=== PATIENT | male | born 1970 | race Caucasian/White ===

== ENCOUNTER 2016-07-13 02:27 | Emergency (ER) | payer MEDICARE, MEDICAID ==
[~2016-07-13] VITALS: Ht 190.5 cm; Wt 99.8 kg
[2016-07-13 02:45] VITALS: BP 146/98
[2016-07-13 03:35] LABS: Basophils # (auto) 0 uL; Basophils % (auto) 0.4 % (0.0-2.0); Eosinophils # (auto) 0.3 uL; Hematocrit 47.1 % (41.0-53.0); Hemoglobin 15.9 g/dL (13.5-17.5); Lymphocytes # (auto) 2.5 uL; Lymphocytes % (auto) 27.4 % (10.0-50.0); Mean Corpuscular Hemoglobin 31.1 pg (28.0-32.0); Mean Corpuscular Hgb Conc. 33.7 g/dL (32.0-36.0); Mean Corpuscular Volume 92.1 fL (80.0-100.0); Mean Platelet Volume 7.3 fL (7.4-10.4); Monocytes # (auto) 0.7 uL; Monocytes % (auto) 7.8 % (0.0-12.0); Neutrophils # (auto) 5.6 uL; Neutrophils % (auto) 61.4 % (37.0-80.0); Platelet Count (auto) 333 10^3/uL (140-450); Red Cell Distribution Width 13.6 % (11.6-16.0); White Blood Cell 9.1 10^3/uL (4.4-10.8)
[2016-07-13 03:42] LABS: Urine Bilirubin Negative (Negative); Urine Blood Negative /uL (Negative); Urine Color Yellow (Yellow); Urine Glucose Normal (Normal); Urine Ketone Negative (Negative); Urine Mucus FEW (None Seen); Urine Nitrite Negative (Negative); Urine RBC 4 /hpf (0 - 3); Urine Squamous Epithelial Cell FEW /hpf (<5); Urine Urobilinogen Normal (Negative); Urine pH 5.5 (5.0-8.0)
[2016-07-13 03:56] LABS: Albumin 3.9 g/dL (3.4-5.0); BUN/Creatinine Ratio 17.7; Calcium 9.4 mg/dL (8.5-10.1); Potassium 3.7 mmol/L (3.5-5.1)
[2016-07-13 03:58] LABS: Bilirubin, Total 0.4 mg/dL (0.2-1.0); Total Protein 7.2 g/dL (6.4-8.2)
== END 2016-07-13 06:00 | disposition left against medical advice (07) ==
LOC: ER 02:27
DX: R10.9 Unspecified abdominal pain (principal); Z53.21 Procedure and treatment not carried out due to patient leaving prior to being seen by health care provider
CPT/HCPCS: 36415; 74176; 80053; 81001; 85025

== ENCOUNTER 2016-08-02 07:21 | Emergency (ER) | payer MEDICARE, MEDICAID ==
[~2016-08-02] VITALS: Ht 190.5 cm; Wt 99.8 kg
[2016-08-02] MEDS ORDERED: SODIUM CHLORIDE 0.9% 1,000 ML IV ONE (07:51)
[2016-08-02] MEDS ORDERED: METOCLOPRAMIDE HCL 5MG/ml INJ 2ml VIAL IV ONE (08:00)
[2016-08-02] MEDS ORDERED: KETOROLAC TROMETH 30 MG/ML 1ML VIAL IV ONE (08:00)
[2016-08-02] MEDS ORDERED: TAMSULOSIN HYDROCHLORIDE 0.4 MG CAP PO ONE (08:00)
[2016-08-02 08:07] LABS: Basophils # (auto) 0 uL; Basophils % (auto) 0.2 % (0.0-2.0); Eosinophils # (auto) 0.1 uL; Eosinophils % (auto) 0.6 % (0.0-7.0); Hematocrit 46.3 % (41.0-53.0); Hemoglobin 15.6 g/dL (13.5-17.5); Lymphocytes % (auto) 6.1 % (10.0-50.0); Mean Corpuscular Hgb Conc. 33.8 g/dL (32.0-36.0); Mean Corpuscular Volume 91.8 fL (80.0-100.0); Mean Platelet Volume 7.1 fL (7.4-10.4); Monocytes # (auto) 0.8 uL; Monocytes % (auto) 4.9 % (0.0-12.0); Neutrophils # (auto) 14.5 uL; Neutrophils % (auto) 88.2 % (37.0-80.0); Platelet Count (auto) 306 10^3/uL (140-450); Red Cell Distribution Width 13.5 % (11.6-16.0); White Blood Cell 16.4 10^3/uL (4.4-10.8)
[2016-08-02 08:29] LABS: BUN/Creatinine Ratio 12.5; Calcium 8.6 mg/dL (8.5-10.1); Potassium 3.8 mmol/L (3.5-5.1)
[2016-08-02 08:32] LABS: Bilirubin, Total 0.4 mg/dL (0.2-1.0); INR 0.95 (0.9-1.15); Partial Thromboplastin Time 29.2 sec (22.64-33.71); Prothrombin Time 10.3 sec (9.37-12.3); Total Protein 7.3 g/dL (6.4-8.2)
[2016-08-02 10:56] LABS: Urine Bilirubin Negative (Negative); Urine Color Yellow (Yellow); Urine Glucose Normal (Normal); Urine Ketone Negative (Negative); Urine Nitrite Negative (Negative); Urine RBC 2 /hpf (0 - 3); Urine Urobilinogen Normal (Negative); Urine pH 5.5 (5.0-8.0)
[2016-08-02 10:57] LABS: Urine Blood 1+ /uL (Negative)
[2016-08-02 12:15] VITALS: BP 124/70
== END 2016-08-02 12:21 | disposition home or self-care (01) ==
LOC: ER 07:21
DX: N13.2 Hydronephrosis with renal and ureteral calculous obstruction (principal); Z88.6 Allergy status to analgesic agent; Z87.442 Personal history of urinary calculi
CPT/HCPCS: 36415; 74176; 80053; 81001; 85025; 85610; 85730; 96361; 96374; 96375; 99285; J1885; J2765; J7030

== ENCOUNTER 2021-02-14 02:41 | Inpatient (IN) | payer MEDICAID, MEDICARE ==
[~2021-02-14] VITALS: Ht 190.5 cm; Wt 106.3 kg
[~2021-02-14 02:41] MED LIST: CYAN1TAB14 PO
[2021-02-14] MEDS ORDERED: ACETAMINOPHEN 325 MG TAB PO ONE (03:15)
[2021-02-14 04:06] LABS: Basophils # (auto) 0 10 ^3/uL (0-0.2); Basophils % (auto) 0.6 % (0.0-2.0); Eosinophils # (auto) 0 10 ^3/uL (0-0.8); Eosinophils % (auto) 0.1 % (0.0-7.0); Hematocrit 45.3 % (41.0-53.0); Hemoglobin 15.9 g/dL (13.5-17.5); Lymphocytes # (auto) 0.7 10 ^3/uL (0.4-5.4); Lymphocytes % (auto) 17.6 % (10.0-50.0); Mean Corpuscular Hemoglobin 31.8 pg (28.0-32.0); Mean Corpuscular Hgb Conc. 35.1 g/dL (32.0-36.0); Mean Corpuscular Volume 90.7 fL (80.0-100.0); Monocytes # (auto) 0.2 10 ^3/uL (0-1.3); Monocytes % (auto) 5.5 % (0.0-12.0); Neutrophils # (auto) 3.1 10 ^3/uL (1.6-8.6); Neutrophils % (auto) 76.2 % (37.0-80.0); Nucleated Red Blood Cells % 0.1 %; Red Cell Distribution Width 13.2 % (11.8-14.3); White Blood Cell 4.1 10^3/uL (4.4-10.8)
[2021-02-14 04:27] LABS: Albumin 3.3 g/dL (3.4-5.0); Calcium 7.8 mg/dL (8.5-10.1); Potassium 3.9 mmol/L (3.5-5.1)
[2021-02-14 04:32] LABS: BUN/Creatinine Ratio 14.1; Bilirubin, Total 0.4 mg/dL (0.2-1.0); Total Protein 6.8 g/dL (6.4-8.2)
[2021-02-14 04:50] LABS: Magnesium 1.8 mg/dL (1.6-2.6)
[2021-02-14 05:00] LABS: CRP High Sensitivity 4.44 mg/dL (< 0.3)
[2021-02-14] MEDS ORDERED: DexAMETHasone SOD PHOS 10MG/1ML VIAL INJ IV ONE (05:15)
[2021-02-14] MEDS ORDERED: MORPHINE SULFATE INJECTION 2 MG/ML SYRG IV PRN (06:00)
[2021-02-14] MEDS ORDERED: DOCUSATE SOD 100 MG CAP PO PRN (06:00)
[2021-02-14] MEDS ORDERED: ACETAMINOPHEN 500 MG TAB PO PRN (06:00)
[2021-02-14] MEDS ORDERED: ONDANSETRON HCL 4 MG/2 ML VIAL IV PRN (06:00)
[2021-02-14] MEDS ORDERED: NITROGLYCERIN 0.4 MG SL TAB SL PRN (06:00)
[2021-02-14 08:30] VITALS: BP 104/64
[2021-02-14 09:00] VITALS: BP 104/64
[2021-02-14] MEDS: cefTRIAXone 1GM/50ML D5W 50 ML IV SCH (09:51)
[2021-02-14] MEDS: BUDESONIDE (INHALATION) 180 MCG IH IN SCH ×2 (10:00→22:25)
[2021-02-14] MEDS: AZITHROMYCIN 500MG/ 250ML 250 ML IV SCH (10:16)
[2021-02-14] MEDS: ENOXAPARIN SOD 40 MG/0.4 ML SYRINGE SC SCH ×2 (10:17→21:19)
[2021-02-14] MEDS: FAMOTIDINE (10MG/ML) 2ML VL IV SCH ×2 (10:17→21:19)
[2021-02-14] MEDS: ASCORBIC ACID 1,000 MG TAB PO SCH (10:18)
[2021-02-14] MEDS: ZINC SULFATE 220mg CAP or TAB PO SCH (10:18)
[2021-02-14] MEDS: DexAMETHasone SOD PHOS 10MG/1ML VIAL INJ IV SCH (10:18)
[2021-02-14] MEDS: CHOLECALCIFEROL (VITD3) 2,000 UNIT CAP/TAB PO SCH (10:18)
[2021-02-14] MEDS: MULTIPLE VITAMIN TAB PO SCH (10:18)
[2021-02-14] MEDS ORDERED: REMDESIVIR PER PHARMACY 0 ML IV SCH (12:30)
[2021-02-14 13:00] VITALS: BP 107/73
[2021-02-14] MEDS ORDERED: REMDESIVIR 200 MG in NS 210ml LOADING DOSE ADULT IV ONE (15:00)
[2021-02-14] MEDS: HYDROcodone-ACET 5/325MG TAB PO PRN ×2 (15:49→21:26)
[2021-02-14 17:00] VITALS: BP 107/69
[2021-02-14] MEDS: guaiFENesin-DM 100/10mg/5ml SYR PO PRN (21:19)
[2021-02-14 22:00] VITALS: BP 114/73
[2021-02-15 05:00] VITALS: BP 127/87
[2021-02-15] MEDS: BUDESONIDE (INHALATION) 180 MCG IH IN SCH ×2 (06:13→22:04)
[2021-02-15 07:04] LABS: Basophils # (auto) 0 10 ^3/uL (0-0.2); Basophils % (auto) 0.1 % (0.0-2.0); Eosinophils # (auto) 0 10 ^3/uL (0-0.8); Hematocrit 49.1 % (41.0-53.0); Lymphocytes # (auto) 1.3 10 ^3/uL (0.4-5.4); Lymphocytes % (auto) 10.3 % (10.0-50.0); Mean Corpuscular Hemoglobin 31.5 pg (28.0-32.0); Mean Corpuscular Hgb Conc. 34.5 g/dL (32.0-36.0); Mean Corpuscular Volume 91.3 fL (80.0-100.0); Monocytes # (auto) 0.5 10 ^3/uL (0-1.3); Monocytes % (auto) 3.8 % (0.0-12.0); Neutrophils # (auto) 11.2 10 ^3/uL (1.6-8.6); Neutrophils % (auto) 85.8 % (37.0-80.0); Nucleated Red Blood Cells % 0.1 %; Red Blood Cells 5.38 10^6/uL (4.5-5.90); Red Cell Distribution Width 13.1 % (11.8-14.3); White Blood Cell 13.1 10^3/uL (4.4-10.8)
[2021-02-15 07:17] LABS: INR 0.95 (0.9-1.15); Partial Thromboplastin Time 31.9 sec (23.6-33.0)
[2021-02-15] MEDS: HYDROcodone-ACET 5/325MG TAB PO PRN ×3 (08:28→21:42)
[2021-02-15 09:00] VITALS: BP 144/95
[2021-02-15] MEDS: cefTRIAXone 1GM/50ML D5W 50 ML IV SCH (09:38)
[2021-02-15] MEDS: DexAMETHasone SOD PHOS 10MG/1ML VIAL INJ IV SCH (09:38)
[2021-02-15] MEDS: guaiFENesin-DM 100/10mg/5ml SYR PO PRN ×2 (09:38→21:43)
[2021-02-15] MEDS: FAMOTIDINE (10MG/ML) 2ML VL IV SCH ×2 (09:38→21:42)
[2021-02-15] MEDS: MULTIPLE VITAMIN TAB PO SCH (09:39)
[2021-02-15] MEDS: ENOXAPARIN SOD 40 MG/0.4 ML SYRINGE SC SCH ×2 (09:39→21:42)
[2021-02-15] MEDS: CHOLECALCIFEROL (VITD3) 2,000 UNIT CAP/TAB PO SCH (09:39)
[2021-02-15] MEDS: ASCORBIC ACID 1,000 MG TAB PO SCH (09:39)
[2021-02-15] MEDS: ZINC SULFATE 220mg CAP or TAB PO SCH (09:39)
[2021-02-15] MEDS: AZITHROMYCIN 500MG/ 250ML 250 ML IV SCH (11:00)
[2021-02-15 13:00] VITALS: BP 128/76
[2021-02-15 14:02] LABS: Potassium 4.5 mmol/L (3.5-5.1)
[2021-02-15 14:03] LABS: Albumin 3.1 g/dL (3.4-5.0); BUN/Creatinine Ratio 17.3; Bilirubin, Total 0.4 mg/dL (0.2-1.0); Calcium 8.6 mg/dL (8.5-10.1); Phosphorus 1.7 mg/dL (2.5-4.90)
[2021-02-15 14:05] LABS: Magnesium 2.6 mg/dL (1.6-2.6); Uric Acid 4.5 mg/dL (3.5-7.2)
[2021-02-15] MEDS: REMDESIVIR 100mg 100 MG in SODIUM CHL 0.9% 230 ML IV SCH (15:52)
[2021-02-15 17:00] VITALS: BP 121/78
[2021-02-15 22:00] VITALS: BP 110/76
[2021-02-15] MEDS: ALBUTEROL SULF HFA 90MCG INH 200DOSE IN PRN (22:04)
[2021-02-16 05:00] VITALS: BP 114/65
[2021-02-16 05:49] LABS: Basophils # (auto) 0 10 ^3/uL (0-0.2); Eosinophils # (auto) 0 10 ^3/uL (0-0.8); Hematocrit 44.4 % (41.0-53.0); Hemoglobin 15.5 g/dL (13.5-17.5); Lymphocytes # (auto) 1.1 10 ^3/uL (0.4-5.4); Mean Corpuscular Hemoglobin 31.5 pg (28.0-32.0); Mean Corpuscular Hgb Conc. 34.8 g/dL (32.0-36.0); Mean Corpuscular Volume 90.6 fL (80.0-100.0); Monocytes # (auto) 0.6 10 ^3/uL (0-1.3); Monocytes % (auto) 5.6 % (0.0-12.0); Neutrophils % (auto) 84.4 % (37.0-80.0); Nucleated Red Blood Cells % 0.1 %; Red Cell Distribution Width 13.2 % (11.8-14.3); White Blood Cell 10.6 10^3/uL (4.4-10.8)
[2021-02-16 06:04] LABS: INR 0.99 (0.9-1.15); Partial Thromboplastin Time 33.6 sec (23.6-33.0)
[2021-02-16 06:05] LABS: Potassium 4.2 mmol/L (3.5-5.1)
[2021-02-16 06:12] LABS: Albumin 3.2 g/dL (3.4-5.0); BUN/Creatinine Ratio 17.8; Bilirubin, Total 0.3 mg/dL (0.2-1.0); Calcium 8.2 mg/dL (8.5-10.1); Magnesium 2.7 mg/dL (1.6-2.6); Phosphorus 3.2 mg/dL (2.5-4.90); Total Protein 6.1 g/dL (6.4-8.2)
[2021-02-16] MEDS: ALBUTEROL SULF HFA 90MCG INH 200DOSE IN PRN (06:15)
[2021-02-16] MEDS: BUDESONIDE (INHALATION) 180 MCG IH IN SCH (06:15)
[2021-02-16 09:00] VITALS: BP 111/61
[2021-02-16] MEDS: DexAMETHasone SOD PHOS 10MG/1ML VIAL INJ IV SCH (09:20)
[2021-02-16] MEDS: FAMOTIDINE (10MG/ML) 2ML VL IV SCH (09:20)
[2021-02-16] MEDS: HYDROcodone-ACET 5/325MG TAB PO PRN (09:20)
[2021-02-16] MEDS: cefTRIAXone 1GM/50ML D5W 50 ML IV SCH (09:20)
[2021-02-16] MEDS: ZINC SULFATE 220mg CAP or TAB PO SCH (09:20)
[2021-02-16] MEDS: ENOXAPARIN SOD 40 MG/0.4 ML SYRINGE SC SCH (09:21)
[2021-02-16] MEDS: MULTIPLE VITAMIN TAB PO SCH (09:21)
[2021-02-16] MEDS: ASCORBIC ACID 1,000 MG TAB PO SCH (09:21)
[2021-02-16] MEDS: CHOLECALCIFEROL (VITD3) 2,000 UNIT CAP/TAB PO SCH (09:21)
[2021-02-16] MEDS: AZITHROMYCIN 500MG/ 250ML 250 ML IV SCH (10:00)
[2021-02-16] MEDS: REMDESIVIR 100mg 100 MG in SODIUM CHL 0.9% 230 ML IV SCH (14:27)
[2021-02-16] MEDS ORDERED: AZIT500T66 PO (16:14)
[2021-02-16] MEDS ORDERED: ALBU108A5 IN (16:14)
[2021-02-16] MEDS ORDERED: FURO1TAB33 PO (16:14)
[2021-02-16] MEDS ORDERED: DEXA6TAB PO (16:14)
[2021-02-16] MEDS ORDERED: ACET-1080 PO (16:14)
[2021-02-16] MEDS ORDERED: POTA10TA51 PO (16:14)
[2021-02-16] MEDS ORDERED: ASPI81CH59 PO (16:14)
[2021-02-16] MEDS ORDERED: TIOTCAP IN (16:14)
[2021-02-16] MEDS ORDERED: CHOL20007 PO (16:14)
== END 2021-02-16 16:19 | disposition home or self-care (01) | DRG 177 ==
LOC: ER 02:41 → OVERFLOW 05:47 → EAST 12:48
PROVIDERS: ADMIT Nurse Practitioner Family; ATTEND Nurse Practitioner Family
PROC: XW033E5 Introduction of Remdesivir Anti-infective into Peripheral Vein, Percutaneous Approach, New Technology Group 5 (ICD-10-PCS; principal; 2021-02-14)
DX: U07.1 COVID-19 (principal); J12.82 Pneumonia due to coronavirus disease 2019; J96.01 Acute respiratory failure with hypoxia; E88.09 Other disorders of plasma-protein metabolism, not elsewhere classified; F17.210 Nicotine dependence, cigarettes, uncomplicated; Z80.42 Family history of malignant neoplasm of prostate; Z87.442 Personal history of urinary calculi; Z88.5 Allergy status to narcotic agent
CPT/HCPCS: 36415; 36600; 71045; 80053; 80061; 82306; 82805; 83036; 83605; 83615; 83735; 83880; 84100; 84443; 84484; 84550; 85025; 85379; 85610; 85730; 86141; 87040; 87426; 93005; 94640; 96374; G0378; J0696; J1100; J3490

== ENCOUNTER 2023-02-07 10:58 | Inpatient (IN) | payer OTHER, SELFPAY ==
[~2023-02-07] VITALS: Ht 190.5 cm; Wt 96.5 kg
[~2023-02-07 10:58] MED LIST changes: +ACET-1080 PO; +ALBU108A5 IN; +ASPI81CH59 PO; +AZIT500T66 PO; +CHOL20007 PO; -CYAN1TAB14 PO; +DEXA6TAB PO; +FURO1TAB33 PO; +POTA10TA51 PO; +TIOTCAP IN
[2023-02-07 11:49] LABS: Basophils # (auto) 0 10 ^3/uL (0-0.2); Basophils % (auto) 0.4 % (0.0-2.0); Eosinophils # (auto) 0.1 10 ^3/uL (0-0.8); Eosinophils % (auto) 1.3 % (0.0-7.0); Hematocrit 44.4 % (41.0-53.0); Hemoglobin 14.6 g/dL (13.5-17.5); Lymphocytes # (auto) 1.5 10 ^3/uL (0.4-5.4); Lymphocytes % (auto) 14.7 % (10.0-50.0); Mean Corpuscular Hemoglobin 30.8 pg (28.0-32.0); Mean Corpuscular Hgb Conc. 32.9 g/dL (32.0-36.0); Mean Corpuscular Volume 93.6 fL (80.0-100.0); Monocytes # (auto) 0.6 10 ^3/uL (0-1.3); Monocytes % (auto) 5.3 % (0.0-12.0); Neutrophils # (auto) 8.1 10 ^3/uL (1.6-8.6); Neutrophils % (auto) 78.3 % (37.0-80.0); Red Blood Cells 4.74 10^6/uL (4.5-5.90); White Blood Cell 10.4 10^3/uL (4.4-10.8)
[2023-02-07 12:12] LABS: Alanine Aminotransferase 132 U/L (7-40); Alkaline Phosphatase 100 U/L (46-116); Anion Gap 6 (5-15); BUN/Creatinine Ratio 14.3 (10.0-20.0); Blood Urea Nitrogen 17 mg/dL (9-23); Calcium 9.1 mg/dL (8.7-10.4); Carbon Dioxide 25 mmol/L (20-30); Chloride 109 mmol/L (98-107); Glucose 103 mg/dL (74-106); Magnesium 1.9 mg/dL (1.6-2.6); Potassium 3.9 mmol/L (3.5-5.1); Sodium 140 mmol/L (136-145)
[2023-02-07 12:13] LABS: Albumin 4.3 g/dL (3.2-4.8); Aspartate Aminotransferase 74 U/L (13-40); Total Protein 6.3 g/dL (5.7-8.2)
[2023-02-07] MEDS ORDERED: HEPARIN SODIUM (PORCINE) 5000 UNITS/ML 1ML VIAL IV ONE (12:45)
[2023-02-07] MEDS ORDERED: FUROSEMIDE 40 MG/4 ML VIAL IV ONE (12:45)
[2023-02-07] MEDS ORDERED: HEPARIN DRIP/D5W 100UNITS/ML 250 ML IV SCH (12:45)
[2023-02-07 14:15] LABS: INR 1.02 (0.9-1.15); Partial Thromboplastin Time 28.2 SEC (24.5-34.5); Prothrombin Time 10.7 sec (9.3-11.8)
[2023-02-07 15:48] LABS: Urine Bacteria FEW /hpf (None Seen); Urine Blood Negative /uL (Negative); Urine Clarity Clear (Clear); Urine Color Yellow (Yellow); Urine Mucus FEW (None Seen); Urine Protein, UAD TRACE (Negative); Urine Specific Gravity 1.026 (1.001-1.035); Urine Urobilinogen Normal (Negative); Urine WBC 1 /hpf (0 - 3); Urine pH 5.5 (5.0-8.0)
[2023-02-07 16:30] VITALS: PULSE 95; RESP 28; O2SAT 94
[2023-02-07] MEDS ORDERED: IOHEXOL 350 MG/ML 100ML IJ ONE (17:18)
[2023-02-07 17:36] LABS: Rapid Influenza A Negative (Negative)
[2023-02-07 17:37] LABS: COVID19 ANTIGEN SOFIA FIA NEGATIVE (NEGATIVE); Rapid Influenza B Negative (Negative)
[2023-02-07] MEDS ORDERED: ONDANSETRON HCL 4 MG/2 ML VIAL IV PRN (21:15)
[2023-02-07] MEDS ORDERED: MORPHINE SULFATE INJ 2 MG/ml SYRG IV PRN (21:15)
[2023-02-07] MEDS ORDERED: ACETAMINOPHEN 325 MG TAB PO PRN (21:15)
[2023-02-07] MEDS ORDERED: NITROGLYCERIN 0.4 MG SL TAB SL PRN (21:15)
[2023-02-07 23:48] LABS: INR 1.03 (0.9-1.15); Partial Thromboplastin Time 31.3 SEC (24.5-34.5); Prothrombin Time 10.8 sec (9.3-11.8)
[2023-02-08] MEDS: HEPARIN DRIP/D5W 100UNITS/ML 250 ML IV SCH ×3 (01:07→15:49)
[2023-02-08] MEDS ORDERED: HEPARIN SODIUM (PORCINE) 5000 UNITS/ML 1ML VIAL IV ONE ×2 (01:15→16:00)
[2023-02-08 05:27] LABS: Basophils # (auto) 0.1 10 ^3/uL (0-0.2); Basophils % (auto) 0.7 % (0.0-2.0); Eosinophils # (auto) 0.3 10 ^3/uL (0-0.8); Eosinophils % (auto) 3.1 % (0.0-7.0); Hematocrit 45.3 % (41.0-53.0); Lymphocytes # (auto) 2.7 10 ^3/uL (0.4-5.4); Lymphocytes % (auto) 29.4 % (10.0-50.0); Mean Corpuscular Hemoglobin 30.7 pg (28.0-32.0); Mean Corpuscular Hgb Conc. 33.2 g/dL (32.0-36.0); Mean Corpuscular Volume 92.6 fL (80.0-100.0); Monocytes # (auto) 0.7 10 ^3/uL (0-1.3); Monocytes % (auto) 7.6 % (0.0-12.0); Neutrophils # (auto) 5.4 10 ^3/uL (1.6-8.6); Neutrophils % (auto) 59.2 % (37.0-80.0); Red Blood Cells 4.89 10^6/uL (4.5-5.90); Red Cell Distribution Width 13.5 % (11.8-14.3); White Blood Cell 9.2 10^3/uL (4.4-10.8)
[2023-02-08 05:31] LABS: Alanine Aminotransferase 108 U/L (7-40); Albumin 4.4 g/dL (3.2-4.8); Alkaline Phosphatase 104 U/L (46-116); Anion Gap 8 (5-15); Aspartate Aminotransferase 41 U/L (13-40); BUN/Creatinine Ratio 11.7 (10.0-20.0); Bilirubin, Total 0.8 mg/dL (0.2-1.0); Blood Urea Nitrogen 14 mg/dL (9-23); Calcium 9.7 mg/dL (8.7-10.4); Carbon Dioxide 27 mmol/L (20-30); Chloride 107 mmol/L (98-107); Glucose 97 mg/dL (74-106); Potassium 3.7 mmol/L (3.5-5.1); Sodium 142 mmol/L (136-145); Total Protein 6.7 g/dL (5.7-8.2)
[2023-02-08] MEDS: FUROSEMIDE 20 MG/2 ML VIAL IV SCH ×2 (06:33→17:20)
[2023-02-08 08:16] LABS: INR 1.03 (0.9-1.15); Partial Thromboplastin Time 44.7 SEC (24.5-34.5); Prothrombin Time 10.8 sec (9.3-11.8)
[2023-02-08 08:30] VITALS: PULSE 85; RESP 24; O2SAT 98
[2023-02-08 10:51] VITALS: BP 124/76; PULSE 91; RESP 18; TEMP 97.3; O2SAT 95
[2023-02-08 15:23] LABS: INR 1.01 (0.9-1.15); Prothrombin Time 10.6 sec (9.3-11.8)
[2023-02-08] MEDS ORDERED: HEPARIN DRIP/D5W 100UNITS/ML 250 ML IV SCH (16:00)
[2023-02-08 16:33] VITALS: PULSE 99; RESP 20; O2SAT 96
[2023-02-08 17:00] VITALS: BP 155/101; PULSE 97; RESP 21; TEMP 97.9; O2SAT 95
[2023-02-08] MEDS: ALPRAZolam 0.25 MG TAB PO PRN (19:45)
[2023-02-08 20:00] VITALS: PULSE 92; PULSE 98; RESP 20; O2SAT 96
[2023-02-08] MEDS: METOPROLOL TARTRATE 25 MG TAB PO SCH (21:28)
[2023-02-08 22:00] VITALS: BP_SYST 106; BP_SYST 113; BP_DIAS 71; BP_DIAS 79; PULSE 64; PULSE 92; RESP 18; RESP 19; TEMP 98; O2SAT 95
[2023-02-08 22:38] LABS: Partial Thromboplastin Time 61.7 SEC (24.5-34.5); Prothrombin Time 10.5 sec (9.3-11.8)
[2023-02-09] VITALS (7 sets, daily range): BP systolic 103–129; BP diastolic 59–77; PULSE 71–98; RESP 15–19; TEMP 97.4–98; O2SAT 96–100
[2023-02-09 04:07] LABS: Basophils # (auto) 0.1 10 ^3/uL (0-0.2); Basophils % (auto) 0.7 % (0.0-2.0); Eosinophils # (auto) 0.3 10 ^3/uL (0-0.8); Eosinophils % (auto) 2.3 % (0.0-7.0); Hematocrit 46.7 % (41.0-53.0); Hemoglobin 15.4 g/dL (13.5-17.5); Lymphocytes # (auto) 2.9 10 ^3/uL (0.4-5.4); Lymphocytes % (auto) 25.8 % (10.0-50.0); Mean Corpuscular Hemoglobin 30.8 pg (28.0-32.0); Mean Corpuscular Volume 93.2 fL (80.0-100.0); Monocytes # (auto) 1.2 10 ^3/uL (0-1.3); Monocytes % (auto) 10.6 % (0.0-12.0); Neutrophils # (auto) 6.9 10 ^3/uL (1.6-8.6); Neutrophils % (auto) 60.6 % (37.0-80.0); Red Blood Cells 5.01 10^6/uL (4.5-5.90); Red Cell Distribution Width 13.9 % (11.8-14.3); White Blood Cell 11.4 10^3/uL (4.4-10.8)
[2023-02-09 04:16] LABS: Chloride 106 mmol/L (98-107); Sodium 143 mmol/L (136-145)
[2023-02-09 04:17] LABS: Anion Gap 7 (5-15); Calcium 10.2 mg/dL (8.5-10.1); Carbon Dioxide 30 mmol/L (20-30)
[2023-02-09 04:22] LABS: BUN/Creatinine Ratio 8.4 (10.0-20.0); Blood Urea Nitrogen 11 mg/dL (9-23); Glucose 95 mg/dL (74-106); INR 1.02 (0.9-1.15); Partial Thromboplastin Time 66.6 SEC (24.5-34.5); Prothrombin Time 10.7 sec (9.3-11.8)
[2023-02-09] MEDS: ALPRAZolam 0.25 MG TAB PO PRN (06:11)
[2023-02-09] MEDS: FUROSEMIDE 20 MG/2 ML VIAL IV SCH (06:12)
[2023-02-09] MEDS: FUROSEMIDE INJECTION 100 MG in D5W 5% 100 ML IV SCH (09:00)
[2023-02-09] MEDS: METOPROLOL TARTRATE 25 MG TAB PO SCH ×2 (10:00→21:21)
[2023-02-09] MEDS: LISINOPRIL 5 MG TAB PO SCH (10:00)
[2023-02-09 10:20] LABS: Basophils # (auto) 0.1 10 ^3/uL (0-0.2); Basophils % (auto) 0.8 % (0.0-2.0); Eosinophils # (auto) 0.2 10 ^3/uL (0-0.8); Hematocrit 49.3 % (41.0-53.0); Hemoglobin 15.9 g/dL (13.5-17.5); Lymphocytes # (auto) 2.3 10 ^3/uL (0.4-5.4); Lymphocytes % (auto) 19.1 % (10.0-50.0); Mean Corpuscular Hemoglobin 30.5 pg (28.0-32.0); Mean Corpuscular Hgb Conc. 32.3 g/dL (32.0-36.0); Mean Corpuscular Volume 94.4 fL (80.0-100.0); Monocytes # (auto) 0.8 10 ^3/uL (0-1.3); Monocytes % (auto) 6.7 % (0.0-12.0); Neutrophils # (auto) 8.7 10 ^3/uL (1.6-8.6); Neutrophils % (auto) 71.4 % (37.0-80.0); Nucleated Red Blood Cells % 0.1 %; Red Blood Cells 5.22 10^6/uL (4.5-5.90); Red Cell Distribution Width 13.9 % (11.8-14.3); White Blood Cell 12.2 10^3/uL (4.4-10.8)
[2023-02-09 10:55] LABS: INR 1.04 (0.9-1.15); Prothrombin Time 10.9 sec (9.3-11.8)
[2023-02-09 11:19] LABS: Partial Thromboplastin Time 75.4 SEC (24.5-34.5)
[2023-02-09] MEDS ORDERED: ENOXAPARIN SOD 100 MG/1 ML SYRINGE SC SCH (22:00)
[2023-02-10] VITALS (10 sets, daily range): BP systolic 100–114; BP diastolic 64–79; PULSE 67–90; RESP 15–22; TEMP 97.3–97.7; O2SAT 93–98
[2023-02-10 06:55] LABS: Alanine Aminotransferase 67 U/L (7-40); Albumin 4.3 g/dL (3.2-4.8); Alkaline Phosphatase 91 U/L (46-116); Anion Gap 11 (5-15); Aspartate Aminotransferase 23 U/L (13-40); BUN/Creatinine Ratio 11.5 (10.0-20.0); Bilirubin, Total 0.5 mg/dL (0.2-1.0); Blood Urea Nitrogen 14 mg/dL (9-23); Carbon Dioxide 26 mmol/L (20-30); Chloride 103 mmol/L (98-107); Glucose 96 mg/dL (74-106); Potassium 3.6 mmol/L (3.5-5.1); Sodium 140 mmol/L (136-145); Total Protein 6.7 g/dL (5.7-8.2)
[2023-02-10] MEDS: LISINOPRIL 5 MG TAB PO SCH (10:00)
[2023-02-10] MEDS: NICOTINE 21MG/24 HR TOPICAL PATCH TD SCH (10:00)
[2023-02-10] MEDS: METOPROLOL TARTRATE 25 MG TAB PO SCH ×2 (10:00→21:36)
[2023-02-10] MEDS ORDERED: VERAPAMIL 2.5MG/ML INJ 2ML VIAL IV ONE (11:57)
[2023-02-10] MEDS ORDERED: fentaNYL CITRATE 100 MCG/2 ML VL ONE (11:57)
[2023-02-10] MEDS ORDERED: HEPARIN SODIUM (PORCINE) 5000 UNITS/ML 1ML VIAL ONE (11:57)
[2023-02-10] MEDS ORDERED: ANGIOMAX 250 MG VIAL IV ONE (11:57)
[2023-02-10] MEDS ORDERED: MIDAZOLAM HCL 2MG/2ML 2ml VIAL (1mg/ml) ONE (11:58)
[2023-02-10] MEDS ORDERED: SODIUM CHL 0.9% 0 ML ONE (11:58)
[2023-02-10] MEDS ORDERED: IODIXANOL 320MG/ML 100ML BTL IV ONE (11:58)
[2023-02-10] MEDS ORDERED: LIDOCAINE 2%HCL (LOCAL ANESTH.) INJ 20ML MDV ONE (11:58)
[2023-02-10] MEDS: FUROSEMIDE INJECTION 100 MG in D5W 5% 100 ML IV SCH (14:39)
[2023-02-10] MEDS: ALPRAZolam 0.25 MG TAB PO PRN (21:35)
[2023-02-11 06:21] VITALS: BP 106/71; PULSE 81; RESP 18; TEMP 97.6; O2SAT 96
[2023-02-11 06:29] LABS: Basophils # (auto) 0 10 ^3/uL (0-0.2); Basophils % (auto) 0.4 % (0.0-2.0); Eosinophils # (auto) 0.2 10 ^3/uL (0-0.8); Eosinophils % (auto) 1.7 % (0.0-7.0); Hematocrit 49.5 % (41.0-53.0); Hemoglobin 16.6 g/dL (13.5-17.5); Lymphocytes # (auto) 1.7 10 ^3/uL (0.4-5.4); Lymphocytes % (auto) 16.1 % (10.0-50.0); Mean Corpuscular Hemoglobin 31.1 pg (28.0-32.0); Mean Corpuscular Hgb Conc. 33.6 g/dL (32.0-36.0); Mean Corpuscular Volume 92.6 fL (80.0-100.0); Monocytes # (auto) 0.8 10 ^3/uL (0-1.3); Monocytes % (auto) 7.7 % (0.0-12.0); Neutrophils % (auto) 74.1 % (37.0-80.0); Nucleated Red Blood Cells % 0.1 %; Red Blood Cells 5.34 10^6/uL (4.5-5.90); Red Cell Distribution Width 14.1 % (11.8-14.3); White Blood Cell 10.8 10^3/uL (4.4-10.8)
[2023-02-11 06:31] LABS: Partial Thromboplastin Time 28.4 SEC (24.5-34.5); Prothrombin Time 10.5 sec (9.3-11.8)
[2023-02-11 06:33] LABS: Alanine Aminotransferase 68 U/L (7-40); Albumin 4.7 g/dL (3.2-4.8); Alkaline Phosphatase 95 U/L (46-116); Anion Gap 8 (5-15); Aspartate Aminotransferase 33 U/L (13-40); BUN/Creatinine Ratio 13.1 (10.0-20.0); Bilirubin, Total 0.5 mg/dL (0.2-1.0); Blood Urea Nitrogen 18 mg/dL (9-23); Calcium 9.9 mg/dL (8.7-10.4); Carbon Dioxide 28 mmol/L (20-30); Chloride 102 mmol/L (98-107); Glucose 111 mg/dL (74-106); Potassium 3.9 mmol/L (3.5-5.1); Sodium 138 mmol/L (136-145); Total Protein 7.1 g/dL (5.7-8.2)
[2023-02-11 08:00] VITALS: BP 110/72; PULSE 78; PULSE 88; RESP 16; TEMP 97.8; O2SAT 94
[2023-02-11 08:21] LABS: Amphetamine Screen, Urine Pos (NEGATIVE); Barbiturate Scree,Urine Neg (NEGATIVE); Benzodiazephine Screen, Urine Pos (NEGATIVE); Cocaine Screen, Urine Neg (NEGATIVE)
[2023-02-11 08:22] LABS: Cannabinoid Screen, Urine Neg (NEGATIVE); Opiate Scree,Urine Neg (NEGATIVE); Phencyclidine Screen, Urine Neg (NEGATIVE)
[2023-02-11] MEDS: ALPRAZolam 0.25 MG TAB PO PRN (09:50)
[2023-02-11] MEDS ORDERED: LISINOPRIL 5 MG TAB PO SCH (10:00)
[2023-02-11] MEDS ORDERED: EMPAGLIFLOZIN 10 MG TAB PO SCH (10:00)
[2023-02-11] MEDS: NICOTINE 21MG/24 HR TOPICAL PATCH TD SCH (10:00)
[2023-02-11] MEDS ORDERED: METOPROLOL TARTRATE 25 MG TAB PO SCH (10:00)
[2023-02-11] MEDS ORDERED: ASPI-498 OR (10:28)
[2023-02-11] MEDS ORDERED: POTA8TAB38 PO (10:28)
[2023-02-11] MEDS ORDERED: LISI-275 PO (10:28)
[2023-02-11] MEDS ORDERED: METO25TA5 PO (10:28)
[2023-02-11] MEDS ORDERED: FURO1TAB33 PO (10:28)
[2023-02-11] MEDS ORDERED: ATOR20TA50 PO (10:28)
[2023-02-11 10:49] VITALS: BP 110/72; PULSE 78; TEMP 36.6
[2023-02-11] MEDS ORDERED: FUROSEMIDE 20 MG/2 ML VIAL IV SCH (18:00)
== END 2023-02-11 11:50 | disposition home or self-care (01) | DRG 280 ==
LOC: ER 10:58 → TELE 21:14 → TELE-CENTR 02-08 10:22
PROVIDERS: ADMIT Nurse Practitioner; ATTEND Nurse Practitioner Acute Care
PROC: 4A023N8 Measurement of Cardiac Sampling and Pressure, Bilateral, Percutaneous Approach (ICD-10-PCS; principal; 2023-02-10)
PROC: B211YZZ Fluoroscopy of Multiple Coronary Arteries using Other Contrast (ICD-10-PCS; 2023-02-10)
DX: I21.4 Non-ST elevation (NSTEMI) myocardial infarction (principal); I50.43 Acute on chronic combined systolic (congestive) and diastolic (congestive) heart failure; J96.91 Respiratory failure, unspecified with hypoxia; I42.8 Other cardiomyopathies; I11.0 Hypertensive heart disease with heart failure; Z20.822 Contact with and (suspected) exposure to COVID-19; I34.0 Nonrheumatic mitral (valve) insufficiency; I25.10 Atherosclerotic heart disease of native coronary artery without angina pectoris; Z88.5 Allergy status to narcotic agent; Z79.82 Long term (current) use of aspirin; Z79.899 Other long term (current) drug therapy; Z80.42 Family history of malignant neoplasm of prostate; Z82.49 Family history of ischemic heart disease and other diseases of the circulatory system; Z83.3 Family history of diabetes mellitus; Z86.16 Personal history of COVID-19; Z87.442 Personal history of urinary calculi; Z72.0 Tobacco use; Z71.6 Tobacco abuse counseling
CPT/HCPCS: 36415; 71045; 71046; 71275; 76937; 80048; 80053; 80307; 81001; 83735; 83880; 84484; 85025; 85379; 85610; 85730; 86850; 86870; 86900; 86901; 87426; 87804; 93005; 93306; 96365; 96375; 99152; G0378; J2250; J7060; Q9967

== ENCOUNTER 2024-02-21 13:05 | Inpatient (IN) | payer MEDICAID, SELFPAY ==
[~2024-02-21] VITALS: Ht 190.5 cm; Wt 100.0 kg
[~2024-02-21 13:05] MED LIST changes: +ASPI-498 OR; +ATOR20TA50 PO; +LISI-275 PO; +METO25TA5 PO; +POTA-36 PO; -POTA10TA51 PO; +POTA8TAB38 PO
--- NOTE | 2024-02-21 13:20 | ED.PDOC ---
History of Present Illness HPI Comments 53-year-old male brought by paramedics because of shortness a breath. Shortness a breath started five days ago. Shortness a breath is upon rest and exertion. History of CHF. 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 Ejection fraction is approximately 10%. History of hypertension. He does take Lasix for his CHF. Denies any other symptoms. Time Seen by MD: 13:13 Primary Care Provider: NONE Reviewed Notes: Nurses Notes, Medications, Allergies Allergies: Coded Allergies: NO KNOWN ALLERGIES (Unverified , 02/08/23) Home Meds Active Scripts Aspirin (ASPIRIN 81) 81 Mg Tab, 81 MG OR DAILY for 60 Days, #60 TAB Prov:CONCHITA LOOMIS NP 02/11/23 Atorvastatin Calcium (ATORVASTATIN CALCIUM) 20 Mg Tab, 1 TAB PO DAILY for 60 Days, #60 TAB 5 Refills Prov:CONCHITA LOOMIS NP 02/11/23 Potassium Chloride (Klor-Con 8) 8 Meq Tab, 8 MEQ PO DAILY for 60 Days, #60 TAB Prov:CONCHITA LOOMIS NP 02/11/23 Furosemide (Lasix) 20 Mg Tb, 1 TAB PO DAILY for 60 Days, #60 TAB 5 Refills Prov:CONCHITA LOOMIS NP 02/11/23 Lisinopril (Lisinopril) 5 Mg Tab, 5 MG PO DAILY for 60 Days, #60 TAB Prov:CONCHITA LOOMIS NP 02/11/23 Metoprolol Tartrate (Metoprolol Tartrate) 25 Mg Tab, 0.5 TAB PO BID for 60 Days, #60 TAB 5 Refills Prov:CONCHITA LOOMIS NP 02/11/23 Tiotropium [place] Monohydrate (Spiriva Handihaler) 18 Mcg Cap, 18 MCG IN BID for 30 Days, #10 CAP Prov:JC CONKLIN MD 02/16/21 Albuterol Sulfate (Albuterol Sulfate Hfa) 108 Mcg/Act Aer, 108 MCG IN Q6HP PRN for 30 Days, #5 AER Prov:JC CONKLIN MD 02/16/21 Aspirin (Aspirin Low Dose) 81 Mg Chw, 1 TAB PO DAILY, #30 TAB Prov:JC CONKLIN MD 02/16/21 Acetaminophen (Tylenol 8 Hour Arthritis) 650 Mg Tab, 650 MG PO Q8HP PRN for 14 Days, #42 TAB Prov:JC CONKLIN MD 02/16/21 Cholecalciferol (VITAMIN D3) 2,000 Unit Tab, 1 TAB PO DAILY, #30 TAB Prov:JC CONKLIN MD 02/16/21 Potassium Chloride (POTASSIUM CHLORIDE CR) 10 Meq Tb, 10 MEQ PO TID for 5 Days, #15 TAB Prov:JC CONKLIN MD 02/16/21 Furosemide (Lasix) 20 Mg Tb, 1 TAB PO BID, #10 TAB Prov:JC CONKLIN MD 02/16/21 Dexamethasone (Dexamethasone) 6 Mg Tab, 6 MG PO DAILY, #7 TAB Prov:JC CONKLIN MD 02/16/21 Azithromycin (Azithromycin) 500 Mg Tab, 1 TAB PO DAILY for 5 Days, #5 TAB Prov:JC CONKLIN MD 02/16/21 Information Source: Patient, Emergency Med Personnel Mode of Arrival: EMS Severity: Moderate Timing: Days Duration: Since onset Past Medical History PAST MEDICAL HISTORY: CHF, HTN, Kidney Stones Surgical History: Denies all surgeries Family History Family History: Family hx of DM Social History Smoker: Cigarettes Alcohol: Rarely Drugs: Denies Drug Use Lives In: Home Constitutional: denies: chills, diaphoresis, fatigue, fever, malaise, sweats, weakness, others EENTM: denies: blurred vision, double vision, ear bleeding, ear discharge, ear drainage, ear pain, ear ringing, eye pain, eye redness, hearing loss, mouth pain, mouth swelling, nasal discharge, nose bleeding, nose congestion, nose pain, photophobia, tearing, throat pain, throat swelling, voice changes, others Respiratory: reports: shortness of breath; denies: cough, hemoptysis, orthopnea, SOB at rest, SOB with excertion, stridor, wheezing, others Cardiovascular: denies: chest pain, dizzy spells, diaphoresis, Dyspnea on exertion, edema, irregular heart beat, left arm pain, lightheadedness, palpitations, PND, syncope, others Gastrointestinal: denies: abdomen distended, abdominal pain, blood streaked bowels, constipated, diarrhea, dysphagia, difficulty swallowing, hematemesis, melena, nausea, poor appetite, poor fluid intake, rectal bleeding, rectal pain, vomiting, others Genitourinary: denies: burning, dysuria, flank pain, frequency, hematuria, incontinence, penile discharge, penile sore, pain, testicle pain, testicle swelling, urgency, others Neurological: denies: dizziness, fainting, headache, left sided numbness, left sided weakness, numbness, paresthesia, pre-existing deficit, right sided numbness, right sided weakness, seizure, speech problems, tingling, tremors, weakness, others Musculoskeletal: denies: back pain, gout, joint pain, joint swelling, muscle pain, muscle stiffness, neck pain, others Integumetry: denies: bruises, change in color, change in hair/nails, dryness, laceration, lesions, lumps, rash, wounds, others Allergic/Immunocompromised: denies: Difficulty Healing, Frequent Infections, Hives, Itching, others Hematologic/Lymphatic: denies: anemia, blood clots, easy bleeding, easy bruising, swollen glands, others Endocrine: denies: excessive hunger, excessive sweating, excessive thirst, excessive urination, flushing, intolerance to cold, intolerance to heat, unexplained weight gain, unexplained weight loss, others Psychiatric: denies: anxiety, bipolar disorder, depression, hopeless, panic disorder, schizophrenia, sleepless, suicidal, others Physical Exam General Appearance: Moderate Distress HEENT: Normal ENT Inspection, Pharynx Normal, TMs Normal Neck: Full Range of Motion, Non-Tender, Normal, Normal Inspection Respiratory: Respiratory Distress, Other (Coarse breath sounds) Cardiovascular: No Edema, No JVD, No Murmur, No Gallop, Normal Peripheral Pulses, Regular Rate/Rhythm Breast Exam: Deferred Gastrointestinal: No Organomegaly, Non Tender, No Pulsatile Mass, Normal Bowel Sounds, Soft Genitalia: Deferred Pelvic: Deferred Rectal: Deferred Extremities: No calf tenderness, Normal capillary refill, Normal inspection, Normal range of motion, Non-tender, No pedal edema Musculoskeletal : Apperance: Normal Neurologic: Alert Cerebellar Function: NOT DONE Reflexes: NOT DONE Skin: Dry, Normal Color, Warm Peripheral Pulses: 3+ Radial (R), 3+ Radial (L) Lymphatic: No Adenopathy Was a procedure done? Was a procedure done?: No Differential Dx Considerations may include: CHF Electrolyte imbalance X-Ray, Labs, Meds, VS Vital Signs Date Time Temp Pulse Resp B/P (MAP) Pulse Ox O2 Delivery O2 Flow Rate FiO2 02/21/24 13:26 84 02/21/24 13:19 98.1 88 20 119/74 (89) 98 Lab Test 02/21/24 16:22 02/21/24 14:44 Range/Units Troponin I High Sensitivity 32 30 </=54 ng/L White Blood Count 7.0 4.4-10.8 10^3/uL Red Blood Count 5.07 4.5-5.90 10^6/uL Hemoglobin 16.0 13.5-17.5 g/dL Hematocrit 48.2 41.0-53.0 % Mean Corpuscular Volume 95.0 80.0-100.0 fL Mean Corpuscular Hemoglobin 31.5 28.0-32.0 pg Mean Corpuscular Hemoglobin Concent 33.1 32.0-36.0 g/dL Red Cell Distribution Width 15.3 H 11.8-14.3 % Platelet Count 166 140-450 10^3/uL Mean Platelet Volume 8.9 6.9-10.8 fL Neutrophils (%) (Auto) 75.9 37.0-80.0 % Lymphocytes (%) (Auto) 16.8 10.0-50.0 % Monocytes (%) (Auto) 6.7 0.0-12.0 % Eosinophils (%) (Auto) 0.2 0.0-7.0 % Basophils (%) (Auto) 0.4 0.0-2.0 % Neutrophils # (Auto) 5.3 1.6-8.6 10 ^3/uL Lymphocytes # (Auto) 1.2 0.4-5.4 10 ^3/uL Monocytes # (Auto) 0.5 0-1.3 10 ^3/uL Eosinophils # (Auto) 0 0-0.8 10 ^3/uL Basophils # (Auto) 0 0-0.2 10 ^3/uL Nucleated Red Blood Cells 0.3 % Sodium Level 137 136-145 mmol/L Potassium Level 4.5 3.5-5.1 mmol/L Chloride Level 105 98-107 mmol/L Carbon Dioxide Level 20 20-31 mmol/L Anion Gap 12 5-15 Blood Urea Nitrogen 26 H 9-23 mg/dL Creatinine 1.22 0.700-1.30 mg/dL Glomerular Filtration Rate Calc 71 >90 mL/min BUN/Creatinine Ratio 21.3 H 10.0-20.0 Serum Glucose 81 74-106 mg/dL Calcium Level 9.4 8.7-10.4 mg/dL Total Bilirubin 1.7 H 0.2-1.0 mg/dL Aspartate Amino Transferase (AST) 691 H 13-40 U/L Alanine Aminotransferase (ALT) 892 H 7-40 U/L Alkaline Phosphatase 107 46-116 U/L Total Protein 6.0 5.7-8.2 g/dL Albumin 4.1 3.2-4.8 g/dL Patient alert. Complaining of shortness a breath. Placed on oxygen. Answering questions. No leg swelling. Does use Lasix. History of drug use. He denies use of any drugs. Ejection fraction approximately 10%. Reviewed his previous visit. Explained to the patient. Continue cardiac monitoring. 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 No pneumothorax. Cardiomediastinal contours: Cardiomegaly Bones: Unremarkable IMPRESSION: Congestion. Cardiomegaly. ATED BY: DAVID PINEDA MD DICTATED DATE/TIME: 02/21/241451 SIGNED BY: DAVID PINEDA MD SIGNED DATE/TIME: 02/21/241451 CC: Time of 1ST Reevaluation: 13:18 Reevaluation 1ST: Unchanged Patient Education/Counseling: Diagnosis, Treatment, Prognosis Family Education/Counseling: No Family Present Departure 1 Departure Time of Disposition: 13:20 Impression: Primary Impression: Congestive heart failure Qualified Codes: I50.43 - Acute on chronic combined systolic (congestive) and diastolic (congestive) heart failure Disposition: ADMITTED INPATIENT Admit to: Med Surg Condition: Guarded Critical Care Note Critical Care Time?: Yes (90 min-critical care time only) Stability Stability form required: No Heart Score Heart Score: Heart Score Response (Comments) Value History Slightly Suspicious 0 EKG Normal 0 Age 45-64 1 Risk Factors >3 or Hx ASHD 2 Troponin Normal limit 0 Total 3 I personally scribed for JOAQUÍN REVELES MD ([email or web address]) on 02/21/24 at 17:39. Electronically submitted by Enio Lizarraga ([email or web address]). JOAQUÍN REVELES MD Feb 21, 2024 13:20
--- NOTE | 2024-02-21 14:54 | DVH ---
CHEST RADIOGRAPH Indication: sob Technique: Single frontal view of the chest was obtained COMPARISON: XY CHEST PORTABLE on DOS: 02/10/23, CHEST PORTABLE on DOS: 02/15/21, CHEST XRAY 1 VIEW on DOS: 02/14/21 FINDINGS: Lines and Tubes: None Lungs: Congestion Pleura: No effusion. No pneumothorax. Cardiomediastinal contours: Cardiomegaly Bones: Unremarkable IMPRESSION: Congestion. Cardiomegaly.
[2024-02-21 15:26] LABS: Albumin 4.1 g/dL (3.2-4.8); Alkaline Phosphatase 107 U/L (46-116); Anion Gap 12 (5-15); BUN/Creatinine Ratio 21.3 (10.0-20.0); Calcium 9.4 mg/dL (8.7-10.4); Carbon Dioxide 20 mmol/L (20-31); Chloride 105 mmol/L (98-107); Glucose 81 mg/dL (74-106); Potassium 4.5 mmol/L (3.5-5.1); Sodium 137 mmol/L (136-145)
[2024-02-21 15:29] LABS: Alanine Aminotransferase 892 U/L (7-40); Aspartate Aminotransferase 691 U/L (13-40); Bilirubin, Total 1.7 mg/dL (0.2-1.0); Blood Urea Nitrogen 26 mg/dL (9-23)
[2024-02-21 16:24] LABS: Basophils # (auto) 0 10 ^3/uL (0-0.2); Basophils % (auto) 0.4 % (0.0-2.0); Eosinophils # (auto) 0 10 ^3/uL (0-0.8); Eosinophils % (auto) 0.2 % (0.0-7.0); Hematocrit 48.2 % (41.0-53.0); Lymphocytes # (auto) 1.2 10 ^3/uL (0.4-5.4); Lymphocytes % (auto) 16.8 % (10.0-50.0); Mean Corpuscular Hemoglobin 31.5 pg (28.0-32.0); Mean Corpuscular Hgb Conc. 33.1 g/dL (32.0-36.0); Monocytes # (auto) 0.5 10 ^3/uL (0-1.3); Monocytes % (auto) 6.7 % (0.0-12.0); Neutrophils # (auto) 5.3 10 ^3/uL (1.6-8.6); Neutrophils % (auto) 75.9 % (37.0-80.0); Nucleated Red Blood Cells % 0.3 %; Platelet Count (auto) 166 10^3/uL (140-450); Red Blood Cells 5.07 10^6/uL (4.5-5.90); Red Cell Distribution Width 15.3 % (11.8-14.3)
[2024-02-21 21:15] VITALS: BP 108/70; PULSE 92; RESP 22; TEMP 97.8; O2SAT 97
[2024-02-21] MEDS ORDERED: NITROGLYCERIN 0.4 MG SL TAB SL PRN (21:30)
[2024-02-21] MEDS ORDERED: MORPHINE SULFATE INJ 2 MG/ml SYRG IV PRN (21:30)
[2024-02-21] MEDS ORDERED: FUROSEMIDE 40 MG/4 ML VIAL IV ONE (21:30)
--- NOTE | 2024-02-22 13:03 | ECG ---
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
== END 2024-02-21 21:55 | disposition left against medical advice (07) | DRG 194 ==
LOC: ER 13:05 → EDBD 13:05 → TELE 21:28
PROVIDERS: ATTEND Emergency Medicine
DX: I11.0 Hypertensive heart disease with heart failure (principal); F17.210 Nicotine dependence, cigarettes, uncomplicated; I50.43 Acute on chronic combined systolic (congestive) and diastolic (congestive) heart failure; Z53.29 Procedure and treatment not carried out because of patient's decision for other reasons; Z79.82 Long term (current) use of aspirin; Z83.3 Family history of diabetes mellitus; Z79.899 Other long term (current) drug therapy; Z87.442 Personal history of urinary calculi
CPT/HCPCS: 36415; 71045; 80053; 84484; 85025; 93005; 99291; 99292; G0378